=== PATIENT | female | born 1975 | race Hispanic/Latino ===

== ENCOUNTER 2025-02-04 19:24 | Emergency (ER) | payer OTHER ==
[~2025-02-04] VITALS: Ht 172.7 cm; Wt 86.2 kg
[2025-02-04] MEDS ORDERED: KETOROLAC TROMETHAMINE 30 MG/ML VIAL ONE (21:03)
[2025-02-04 21:04] LABS: BASOPHILS # (AUTO) 0.1 (0.0-0.1); BASOPHILS % 0.6 % (0.0-1.0); EOSINOPHILS # (AUTO) 0.7 (0.0-0.4); EOSINOPHILS % 7.6 % (0.0-6.0); HEMATOCRIT 43.5 % (34.2-44.1); HEMOGLOBIN 14.5 g/dL (12.0-16.0); LYMPHOCYTES # (AUTO) 2.5 (1.0-3.2); LYMPHOCYTES % 26.7 % (18.0-39.1); MEAN CORPUSCULAR HGB CONC 33.3 g/dL (31-35); MEAN CORPUSCULAR VOLUME 92.9 fL (81-99); MONOCYTES # (AUTO) 0.7 (0.2-0.8); MONOCYTES % 7.2 % (4.4-11.3); NEUTROPHILS # (AUTO) 5.4 (2.1-6.9); NEUTROPHILS % 57.5 % (38.7-80.0); PLATELET COUNT 294 x10e3/uL (140-360); RED BLOOD COUNT 4.68 x10e6/uL (3.6-5.1); RED CELL DISTRIBUTION WIDTH 12.4 % (11.7-14.4)
[2025-02-04] MEDS: KETOROLAC TROMETHAMINE 30 MG/ML VIAL IV STA (21:12)
[2025-02-04] MEDS: ONDANSETRON HCL INJ 2MG/ML 2ML 2 MG/ML VIAL IV STA (21:12)
[2025-02-04] MEDS: SODIUM CHLORIDE 0.9% 1000ML 1,000 ML IV STA (21:13)
[2025-02-04 21:28] LABS: ALBUMIN 4.5 g/dL (3.5-5.0); ALBUMIN/GLOBULIN RATIO 1.2 (0.8-2.0); ANION GAP 16.2 mmol/L (8-16); BILIRUBIN,TOTAL 0.4 mg/dL (0.2-1.2); CALCIUM 9.6 mg/dL (8.4-10.2); CREATININE, SERUM 0.87 mg/dL (0.57-1.11); TOTAL PROTEIN 8.3 g/dL (6.5-8.1)
[2025-02-04 21:33] LABS: TROPONIN I 0.012 ng/mL (0-0.300)
[2025-02-04 21:42] LABS: POTASSIUM 3.2 mmol/L (3.5-5.1)
[2025-02-04 21:50] LABS: CLARITY,URINE TURBID (CLEAR); COLOR,URINE BROWN (YELLOW); LEUKOCYTE ESTERASE ,URINE NEGATIVE (NEGATIVE); PH,URINE 6.5 (5 - 7)
[2025-02-04 21:51] LABS: BILIRUBIN,URINE SMALL (NEGATIVE); GLUCOSE, URINE NEGATIVE (NEGATIVE); KETONES,URINE TRACE (NEGATIVE); NITRITE,URINE NEGATIVE (NEGATIVE); PROTEIN,URINE DIPSTICK 2+ (NEGATIVE)
[2025-02-04] MEDS ORDERED: IOPAMIDOL 370 MG/ML 100 ML INFUS..BTL INJ ONE (21:51)
[2025-02-04 22:15] LABS: BACTERIA,URINE MODERATE /HPF; EPITHELIAL CELLS,URINE FEW /LPF; RBC,URINE >50 /HPF (0-5)
[2025-02-04] MEDS: TRAMADOL HCL 50 MG TAB PO STA (22:40)
[2025-02-04] MEDS ORDERED: ONDANSETRON ODT4 MG PO (23:23)
[2025-02-04] MEDS ORDERED: ULTRAM 50MG50 MG PO (23:23)
[2025-02-04] MEDS ORDERED: AMOX TR-K CLV1 EAC2 PO (23:23)
[2025-02-04 23:31] VITALS: PULSE 60; RESP 18; O2SAT 97
[2025-02-04 23:32] VITALS: TEMP 97.7
== END 2025-02-04 23:48 | disposition home or self-care (01) ==
LOC: ER 19:32
DX: R31.9 Hematuria, unspecified (principal); R10.30 Lower abdominal pain, unspecified; K80.20 Calculus of gallbladder without cholecystitis without obstruction; K40.90 Unilateral inguinal hernia, without obstruction or gangrene, not specified as recurrent
CPT/HCPCS: 36415; 74177; 80053; 81001; 82550; 83690; 84484; 85025; 99284; J1885; J2405; J7030; Q9967